=== PATIENT | female | born 1970 | race American Indian/Alaskan Native ===

== ENCOUNTER 2021-06-28 08:20 | Emergency (ER) | payer MEDICAID, SELFPAY ==
[2021-06-28] VITALS (10 sets, daily range): BP systolic 90–99; BP diastolic 53–68; PULSE 82–96; RESP 21–29; TEMP 36.8; O2SAT 92–95; BMI 25.0
--- NOTE | 2021-06-28 08:24 | ED_ITS ---
HPI - Asthma General Chief Complaint: Asthma Stated Complaint: SOB & chest pain Time Seen by Provider: 06/28/21 08:20 History of Present Illness HPI Narrative: 50-year-old woman with a history of COPD/asthma, opiate use disorder on 160 mg of methadone and followed at the [facility]. History of 2 pack a day smoking, bipolar disorder, as well as recurrent insomnia presented to the clinic today for her daily methadone dose and was noted to be tachypneic, tachycardic and dyspneic. Medics were called for further evaluation and transport to the emergency department. She was given a albuterol nebulizer EN route and appears much better on arrival in the emergency department reviewed she is able to speak in full sentences although she has a hoarse voice(she states that her voice is always like this and this is not a change) with oxygen levels at 93%. She states that she had a productive cough for the last 3 days. Increased difficulty sleeping severe right upper chest pain that is in the anterior axillary line just above her breast almost into the complete axilla. There is no obvious skin abnormalities masses or erythema at that site. She describes no nausea vomiting or diarrhea. She does have a low-grade headache. She does not describe palpitations or lower extremity edema. Related Data Previous Rx's Medication Instructions Recorded albuterol sulfate 90 mcg/actuation 2 puff INHALATION Q6H PRN #8.5 g 06/28/21 aerosol inhaler methylprednisolone 4 mg tablets in See Rx Instructions .ROUTE 06/28/21 a dose pack (Medrol (Jacques)) .COMPLEX #21 ea Allergies Allergy/AdvReac Type Severity Reaction Status Date / Time No Known Drug Allergies Allergy Verified 06/28/21 09:14 Review of Systems Review of Systems Narrative: Remainder of complete review of systems is otherwise unremarkable except for that included in the HPI. Patient History Medical History (Updated 06/28/21 @ 10:59 by Jacqui Traore MD) Bipolar disorder Chronic insomnia COPD (chronic obstructive pulmonary disease) Opioid use disorder Tobacco abuse disorder Social History Smoking Status: Current every day smoker Exam Initial Vital Signs Initial Vital Signs: Vital Signs Temperature 98.2 F 06/28/21 08:21 Pulse Rate 94 H 06/28/21 08:21 Respiratory Rate 24 06/28/21 08:21 Blood Pressure 93/55 L 06/28/21 08:21 Pulse Oximetry 95 06/28/21 08:21 General: Chronically ill-appearing 50-year-old woman who appears sick but is Able to give a complete and coherent history. Neck: No JVD, supple Respiratory: Lungs with minor scattered wheezes, no significant rhonchi, Full and symmetrical air movement. She is able to speak in full sentences and is not using accessory muscles at this point Cardiac: Regular rate and rhythm. no murmurs with careful auscultation. No bruits Abdomen: Soft, nontender, good bowel tones, no flank pain Skin: Pale. Eczema with multiple dry patches and significant excoriation from scratching. There is a patch over her right shoulder close to the area of pain. This does appear to be eczema rather than zoster Neurologic: Globally weak what Grossly neurologically intact with no obvious asymmetries or abnormalities Extremities: No trauma, well perfused Psych: Cooperative, appropriate insight and affect Course Orders Ordered: ED Orders 06/28/21 08:40 XR chest 1V Stat Complete Blood Count AUTO DIFF Stat Comprehensive Metabolic Panel Stat Lactate (Lactic Acid) Stat Lipase Stat Magnesium Stat Respiratory Panel (Film Array) Stat Troponin I Stat 06/28/21 09:05 Blood Culture Stat Discontinued Medications Sodium Chloride (Normal Saline 0.9%) 1,000 mls @ 1,000 mls/hr IV BOLUS ONE Stop: 06/28/21 09:37 Last Infusion: 06/28/21 10:35 Dose: 0 mls/hr Documented by: Admin: 06/28/21 09:15 Dose: 1,000 mls/hr Documented by: CATHERINE Ketorolac Tromethamine (Ketorolac 30 Mg/Ml Vial) 15 mg IV NOW ONE Stop: 06/28/21 08:39 Last Admin: 06/28/21 09:15 Dose: 15 mg Documented by: CATHERINE Magnesium Citrate (Magnesium Citrate 300 Ml Solution) 300 ml PO NOW ONE Stop: 06/28/21 08:39 Last Admin: 06/28/21 09:14 Dose: 300 ml Documented by: CATHERINE Methadone HCl (Methadone 10 Mg Tablet) 160 mg PO NOW ONE Stop: 06/28/21 10:31 Last Admin: 06/28/21 10:34 Dose: 160 mg Documented by: AUPDIKE Methylprednisolone (Methylprednisolone 125 Mg/2 Ml Vial) 125 mg IV NOW ONE Stop: 06/28/21 08:39 Last Admin: 06/28/21 09:15 Dose: 125 mg Documented by: CATHERINE Ondansetron HCl (Ondansetron 4 Mg/2 Ml Inj) 4 mg IV NOW ONE Stop: 06/28/21 08:39 Last Admin: 06/28/21 09:14 Dose: 4 mg Documented by: CATHERINE Vital Signs Vital signs: Vital Signs - 8 hr 06/28/21 08:21 Temperature 98.2 F Pulse Rate 94 H Respiratory Rate 24 Blood Pressure 93/55 L Pulse Oximetry 95 MDM - Asthma Lab Data Lab results narrative: Significant microcytic anemia, no prior blood work for comparison Result diagrams: 06/28/21 08:40 06/28/21 08:40 Labs: Lab Results 06/28/21 06/28/21 06/28/21 Range/Units 08:40 08:40 08:40 WBC 9.1 (4.5-11.0) X10^3/uL RBC 3.71 L (4.0-5.2) X10^6/uL Hgb 7.5 L (12.0-16.0) g/dL Hct 23.7 L (36-46) % MCV 64.1 L (80-100) fL MCH 20.3 L (26-34) PG MCHC 31.6 (30-36) % RDW 22.3 H (11.6-14.8) % Plt Count 410 H (150-400) X10^3/uL Neut % (Auto) 85.9 H (50-75) % Lymph % (Auto) 7.0 L (25-40) % [place] % (Auto) 4.6 (3-14) % Eos % (Auto) 2.3 (2-4) % Baso % (Auto) 0.2 (0-2) % Neut # (Auto) 7800 H (0270-6724) /uL Lymph # (Auto) 600 L (1950-8457) /uL [place] # (Auto) 400 (0-900) /uL Eos # (Auto) 200 (0-450) /uL Baso # (Auto) 0 (0-100) /uL RBC Morphology Not Reportable Hypochromasia 2+ H Poikilocytosis 1+ H Microcytosis 3+ H Sodium 137 (137-145) mmol/L Potassium 3.8 (3.4-5.1) mmol/L Chloride 103 (98-107) mmol/L Carbon Dioxide 28 (22-32) mmol/L BUN 9 (7-17) mg/dL Creatinine 0.63 (0.52-1.04) mg/dL Estimated GFR > 60 (>60) mL/min BUN/Creatinine Ratio 14.3 (6-22) Glucose 106 H (70-100) mg/dL Lactate 0.8 (0.7-2.1) mmol/L Calcium 7.8 L (8.4-10.2) mg/dL Magnesium 2.0 (1.6-2.3) mg/dL Total Bilirubin 0.1 L (0.2-1.3) mg/dL AST 37 H (14-36) IU/L ALT 14 (<35) IU/L Alkaline Phosphatase 107 (38-126) U/L Troponin I < 0.012 (0.01-0.034) ng/mL Total Protein 7.1 (6.3-8.2) g/dL Albumin 3.2 L (3.5-5.0) g/dL Globulin 3.9 (1.7-4.1) g/dL Albumin/Globulin Ratio 0.8 L (1.0-2.8) Lipase 55 (23-300) U/L Chlamy pneumoniae PCR (Not Detect) Adenovirus (PCR) (Not Detect) B. pertussis DNA (PCR) (Not Detecte) B.parapertussis DNA PCR (Not Detecte) Coronavirus OC43 (PCR) (Not Detect) Coronavirus HKU1 (PCR) (Not Detect) Coronavirus 229E (PCR) (Not Detect) SARS-CoV-2 (PCR) (Not Detecte) Coronavirus NL63 (PCR) (Not Detect) Human Metapneumovir PCR (Not Detect) Influenza Type A (PCR) (Not Detect) Influenza Type B (PCR) (Not Detect) M. pneumoniae (PCR) (Not Detect) Parainfluenza 1 (PCR) (Not Detect) Parainfluenza 2 (PCR) (Not Detect) Parainfluenza 3 (PCR) (Not Detect) Parainfluenza 4 (PCR) (Not Detect) RSV (PCR) (Not Detect) Entero/Rhino (PCR) (Not Detect) 06/28/21 Range/Units 08:40 WBC (4.5-11.0) X10^3/uL RBC (4.0-5.2) X10^6/uL Hgb (12.0-16.0) g/dL Hct (36-46) % MCV (80-100) fL MCH (26-34) PG MCHC (30-36) % RDW (11.6-14.8) % Plt Count (150-400) X10^3/uL Neut % (Auto) (50-75) % Lymph % (Auto) (25-40) % [place] % (Auto) (3-14) % Eos % (Auto) (2-4) % Baso % (Auto) (0-2) % Neut # (Auto) (9164-7174) /uL Lymph # (Auto) (1741-3519) /uL [place] # (Auto) (0-900) /uL Eos # (Auto) (0-450) /uL Baso # (Auto) (0-100) /uL RBC Morphology Hypochromasia Poikilocytosis Microcytosis Sodium (137-145) mmol/L Potassium (3.4-5.1) mmol/L Chloride (98-107) mmol/L Carbon Dioxide (22-32) mmol/L BUN (7-17) mg/dL Creatinine (0.52-1.04) mg/dL Estimated GFR (>60) mL/min BUN/Creatinine Ratio (6-22) Glucose (70-100) mg/dL Lactate (0.7-2.1) mmol/L Calcium (8.4-10.2) mg/dL Magnesium (1.6-2.3) mg/dL Total Bilirubin (0.2-1.3) mg/dL AST (14-36) IU/L ALT (<35) IU/L Alkaline Phosphatase (38-126) U/L Troponin I (0.01-0.034) ng/mL Total Protein (6.3-8.2) g/dL Albumin (3.5-5.0) g/dL Globulin (1.7-4.1) g/dL Albumin/Globulin Ratio (1.0-2.8) Lipase (23-300) U/L Chlamy pneumoniae PCR Not detected (Not Detect) Adenovirus (PCR) Not detected (Not Detect) B. pertussis DNA (PCR) Not detected (Not Detecte) B.parapertussis DNA PCR Not detected (Not Detecte) Coronavirus OC43 (PCR) Not detected (Not Detect) Coronavirus HKU1 (PCR) Not detected (Not Detect) Coronavirus 229E (PCR) Not detected (Not Detect) SARS-CoV-2 (PCR) Not detected (Not Detecte) Coronavirus NL63 (PCR) Not detected (Not Detect) Human Metapneumovir PCR Not detected (Not Detect) Influenza Type A (PCR) Detected H (Not Detect) Influenza Type B (PCR) Not detected (Not Detect) M. pneumoniae (PCR) Not detected (Not Detect) Parainfluenza 1 (PCR) Not detected (Not Detect) Parainfluenza 2 (PCR) Not detected (Not Detect) Parainfluenza 3 (PCR) Not detected (Not Detect) Parainfluenza 4 (PCR) Not detected (Not Detect) RSV (PCR) Not detected (Not Detect) Entero/Rhino (PCR) Not detected (Not Detect) Imaging Data Chest x-ray: Radiologist's Impression: FINDINGS:? ? Surgical changes and devices:? None.? ? Lungs and pleura:? Improvement in left basilar atelectasis and infiltrate.? Development of patchy right basilar pneumonia.? No pleural effusions or pneumothorax.? ? Mediastinum:? Mediastinal contours appear normal.? Heart size is normal.? ? Bones and chest wall:? No suspicious bony lesions.? Overlying soft tissues appear unremarkable.? ? IMPRESSION:? ? 1. Improvement in left basilar atelectasis plus infiltrate. ? 2. Development of patchy right basilar pneumonia. ? ? Dictated by: Shubham Perry M.D. on 06/28/2021 at 9:04? ?? [facility] Narrative Medical decision making narrative: 50-year-old woman with cough, severe pain in the right anterior axillary area and history of COPD. She is relatively hypotensive and exquisitely tender to the point that even looking at the area of pain causes her to shot I away. Th ere are no skin changes at all no trauma no abnormalities on chest x-ray in that specific area. Blood work suggests poor overall nutrition and chronic anemia. She states that she has not been vomiting she has not had any black stools and she has had a history of anemia ever since she was a child. She states that she has not had further workup for this. After discussion with her clinic, she is given her daily 160 mg oral methadone. Given the fact that she appears to be in acute withdrawal I suspect she is using additional narcotics beyond the methadone as her last methadone dose was 24 jerica rs ago and 1 would not expect such severe withdrawal symptoms. No evidence of pneumonia. Chest wall pain of uncertain etiology. She did not respond to Toradol with the chest wall pain. On re-evaluation after methadone she is significantly improved. No acute distress, no respiratory distress and reports that pain is improved. No evidence of bony injury or pneumothorax. She held mild wheezing with her cough will go ahead and treat her for a mild COPD exacerbation with a Medrol Dosepak and have her continue with her albuterol MDI. At this time there is no evidence of sepsis, acute coronary syndrome, pneumonia or alternate explanation for her pain require further workup for hospitalizati on. Discharge Plan Departure Patient Disposition: Home Clinical Impression: Chronic obstructive asthma with exacerbation, Opioid use disorder Instructions: DI for Chronic Obstructive Pulmonary Disease Activity Restrictions/Additional Instructions: Thank you for coming in today Your evaluation was actually very reassuring. I suspect that your having a mild exacerbation of your COPD. I have given you a prescription for a Medrol Dosepak. You can start this tomorrow as you are given a dose of Solu-Medrol, a steroid, in the emergency room today. There is no evidence of collapsed lung, infection, shingles, heart attack or other life-threatening explanation for your chest pain. You were given 160 mg of methadone in the emergency room today as your usual methadone dose. This has been discussed with staff at the [facility]. I wish you luck in your getting your opioid use disorder under control and also in continuing with your attempts to stop smoking If you find that you are getting worse or develop any new symptoms, please feel free to return to the emergency department for further evaluation. Prescriptions: New methylprednisolone [Medrol (Jacques)] 4 mg tablets,dose pack See Rx Instructions .ROUTE .COMPLEX Qty: 21 0RF Rx Instructions: orally per package directions albuterol sulfate 90 mcg/actuation HFA aerosol inhaler 2 puff inhalation Q6H PRN (Reason: shortness of breath or wheezing) Qty: 8.5 0RF
--- NOTE | 2021-06-28 08:40 | DI.RAD.S_ITS ---
PROCEDURE: XR CHEST 1V INDICATIONS: cough for a couple days TECHNIQUE: One view of the chest was acquired. COMPARISON: [facility], CT, CT CHEST WITHOUT CONTRAST, 05/13/2020, 12:24. FINDINGS: Surgical changes and devices: None. Lungs and pleura: Improvement in left basilar atelectasis and infiltrate. Development of patchy right basilar pneumonia. No pleural effusions or pneumothorax. Mediastinum: Mediastinal contours appear normal. Heart size is normal. Bones and chest wall: No suspicious bony lesions. Overlying soft tissues appear unremarkable. IMPRESSION: 1. Improvement in left basilar atelectasis plus infiltrate. 2. Development of patchy right basilar pneumonia. Dictated by: Shubham Perry M.D. on 06/28/2021 at 9:04 Approved by: Shubham Perry M.D. on 06/28/2021 at 9:07
[2021-06-28 09:01] LABS: Add Manual Diff / Slide Review NO; Basophils Absolute Auto 0 /uL (0-100); Basophils Percent Auto 0.2 % (0-2); Eosinophils Absolute Auto 200 /uL (0-450); Eosinophils Percent Auto 2.3 % (2-4); Hematocrit 23.7 % (36-46); Hemoglobin 7.5 g/dL (12.0-16.0); Lymphocytes Absolute Auto 600 /uL (1100-4500); Mean Corpuscular HGB Conc 31.6 % (30-36); Mean Corpuscular Hemoglobin 20.3 PG (26-34); Mean Corpuscular Volume 64.1 fL (80-100); Monocytes Absolute Auto 400 /uL (0-900); Monocytes Percent Auto 4.6 % (3-14); Neutrophils Absolute Auto 7800 /uL (1500-7000); Neutrophils Percent Auto 85.9 % (50-75); Platelet Count 410 X10^3/uL (150-400); Red Blood Cell Count 3.71 X10^6/uL (4.0-5.2); Red Cell Distribution Width 22.3 % (11.6-14.8); White Blood Cell Count 9.1 X10^3/uL (4.5-11.0)
[2021-06-28 09:02] LABS: Alanine Aminotransferase 14 IU/L (<35); Albumin 3.2 g/dL (3.5-5.0); Albumin Globulin Ratio 0.8 (1.0-2.8); Alkaline Phosphatase 107 U/L (38-126); Aspartate Aminotransferase 37 IU/L (14-36); BUN Creatinine Ratio 14.3 (6-22); Bilirubin Total 0.1 mg/dL (0.2-1.3); Blood Urea Nitrogen 9 mg/dL (7-17); Calcium 7.8 mg/dL (8.4-10.2); Carbon Dioxide 28 mmol/L (22-32); Chloride 103 mmol/L (98-107); Estimated Glomerular Filt Rate > 60 mL/min (>60); Globulin 3.9 g/dL (1.7-4.1); Glucose 106 mg/dL (70-100); HEMOLYSIS < 15 (0-50); Lipase 55 U/L (23-300); Potassium 3.8 mmol/L (3.4-5.1); Sodium 137 mmol/L (137-145); Total Protein 7.1 g/dL (6.3-8.2)
[2021-06-28 09:11] LABS: Troponin I < 0.012 ng/mL (0.01-0.034)
[2021-06-28 09:13] LABS: Lactate (Lactic Acid) 0.8 mmol/L (0.7-2.1)
[2021-06-28] MEDS: MAGNESIUM CITRATE 300 ML SOLUTION PO (09:14)
[2021-06-28] MEDS: ONDANSETRON 4 MG/2 ML INJ IV (09:14)
[2021-06-28] MEDS: KETOROLAC 30 MG/ML VIAL 15 MG IV (09:15)
[2021-06-28] MEDS: methylPREDNISolone 125 MG/2 ML VIAL IV (09:15)
[2021-06-28] MEDS: SODIUM CHLORIDE 0.9% 1,000 ML 1000 ML IV (09:15)
[2021-06-28 09:35] LABS: Hypochromasia 2+; Microcytosis 3+; Poikilocytosis 1+
[2021-06-28 09:45] LABS: Adenovirus Not Detected (Not Detect); B. parapertussis Not Detected (Not Detecte); Bordetella pertussis Not Detected (Not Detecte); Chlamydophila pneumoniae Not Detected (Not Detect); Coronavirus 229E Not Detected (Not Detect); Coronavirus HKU1 Not Detected (Not Detect); Coronavirus NL 63 Not Detected (Not Detect); Coronavirus OC43 Not Detected (Not Detect); Human Metapneumovirus Not Detected (Not Detect); Human Rhinovirus/Enterovirus Not Detected (Not Detect); Influenza A Detected (Not Detect); Influenza B Not Detected (Not Detect); Mycoplasma pneumoniae Not Detected (Not Detect); Parainfluenza Virus 1 Not Detected (Not Detect); Parainfluenza Virus 2 Not Detected (Not Detect); Parainfluenza Virus 3 Not Detected (Not Detect); Parainfluenza Virus 4 Not Detected (Not Detect); Respiratory Syncytial Virus Not Detected (Not Detect); SARS- CoV-2 Not Detected (Not Detecte)
[2021-06-28] MEDS: METHADONE 10 MG TABLET 160 MG PO (10:34)
== END 2021-06-28 11:18 | disposition home or self-care (01) ==
PROVIDERS: Emergency Provider Emergency Medicine
DX: J44.1 Chronic obstructive pulmonary disease with (acute) exacerbation (principal); F11.90 Opioid use, unspecified, uncomplicated; R00.0 Tachycardia, unspecified; R06.02 Shortness of breath; Z20.822 Contact with and (suspected) exposure to COVID-19; I95.9 Hypotension, unspecified
CPT/HCPCS: 36415; 71045; 80053; 83605; 83690; 83735; 84484; 85025; 87040; 87633; 93005; 96374; 96375; 99284; J1885; J2405; J2930

== ENCOUNTER 2021-11-09 08:44 | Emergency (ER) | payer MEDICAID, SELFPAY ==
[2021-11-09 09:05] VITALS: BP 107/59; PULSE 70; RESP 14; TEMP 36.8; O2SAT 97; BMI 25.0
--- NOTE | 2021-11-09 09:31 | ED.RECABL ---
HPI - Recheck/Abnormal Lab/Rx General Chief Complaint: Recheck/Abnormal Lab/Rx Stated Complaint: Abnormal labs ref from [facility] Time Seen by Provider: 11/09/21 09:13 Source: patient Mode of arrival: Ambulatory History of Present Illness HPI narrative: The patient is here due to abnormal labs. She has a new physician. She has COPD. From prior evaluation here, she has anemia. Lab work revealed H/H of 6.7/25.5. Platelets 442. Her TIBC, and iron levels are notably low. She has no chest pain. She is coughing, she denies dyspnea. She has no dizziness. She has mild abdominal pain. She has no history of ulcers or GI bleeding. She denies melena or hematochezia. She was evaluated at this ER 06/28/2021 for COPD. Her H/H at that time was 7.5/23.7. Related Data Previous Rx's Medication Instructions Recorded albuterol sulfate 90 mcg/actuation 2 puff inhalation Q6H PRN 06/28/21 aerosol inhaler shortness of breath or wheezing #8.5 grams methylprednisolone 4 mg tablets in See Rx Instructions PO .COMPLEX 06/28/21 a dose pack (Medrol (Jacques)) #21 ea Allergies Allergy/AdvReac Type Severity Reaction Status Date / Time No Known Drug Allergies Allergy Verified 11/09/21 09:10 Review of Systems Review of Systems ROS Unobtainable: All systems reviewed & are unremarkable except as noted in HPI and below Constitutional Constitutional: Denies anorexia, Denies body ache(s), Denies chills, Denies fatigue, Denies fever(s) and Denies malaise ENT Ears, Nose, Mouth, and Throat: Denies vertigo, Denies dizziness and Denies sore throat Cardiovascular Cardiovascular: Denies chest pain and Denies irregular heart rhythm Respiratory Respiratory: Denies chest congestion and Denies cough Gastrointestinal Gastrointestinal: Denies abdominal pain, Denies melena and Denies hematochezia Genitourinary Genitourinary: Denies dysuria Musculoskeletal Musculoskeletal: Denies arthralgias, Denies back pain and Denies myalgias Integumentary/Breasts Skin/Breast: Denies lesions and Denies rash Neurologic Neurologic: Denies vertigo and Denies dizziness Endocrine Endocrine: Denies fatigue Hematologic/Lymphatic On Anticoagulants: No Patient History Medical History Bipolar disorder Chronic insomnia COPD (chronic obstructive pulmonary disease) Opioid use disorder Tobacco abuse disorder Social History Smoking Status: Current every day smoker Smoking Status: Current every day smoker alcohol intake frequency: holidays/special occasions only Substance Use Type: opiates and painkillers Exam Initial Vital Signs Initial Vital Signs: Vital Signs Temperature 98.2 F 11/09/21 09:05 Pulse Rate 70 11/09/21 09:05 Respiratory Rate 14 11/09/21 09:05 Blood Pressure 107/59 L 11/09/21 09:05 Pulse Oximetry 97 11/09/21 09:05 Oxygen Delivery Method 11/09/21 09:05 Const General: cooperative, healthy appearing and comfortable HENMT Head: normal to inspection, normocephalic and atraumatic Mouth: oral mucosae normal Throat: posterior oropharynx normal Eyes General: Yes appearance normal, both eyes and all related structures Neck Neck: No lymphadenopathy and No JVD Resp Auscultation: clear to auscultation bilaterally Cardio Rate: regular rate Rhythm: regular rhythm Heart Sounds: S1 normal, S2 normal and no murmurs GI Inspection: normal to inspection Palpation: soft, No guarding and No tender Auscultation: normal bowel sounds Rectal Exam: visual inspection normal, normal sphincter tone, heme negative stool and No mass Back/Spine/Pelvis Back: normal to inspection and No back tenderness Skin General: no rashes or lesions noted Neuro General: patient alert, patient awake, patient oriented x3 and no focal motor deficits Extrem General: normal to inspection, no pedal edema and no calf tenderness Psych Appearance: grossly normal Course Course Course Narrative: Her anemia is chronic. Despite the low H/H, her heart rate and blood pressure have adapted. She is normotensive, she has no dizziness when up and about. Labs from her provider's office indicate a significant low iron level. She is referred back to her PCM for management of chronic anemia. Transfusion is not indicated. Orders Ordered: ED Orders 11/09/21 09:43 CBC with manual diff [Complete Blood Count MAN DIFF] Stat CMP [Comprehensive Metabolic Panel] Stat Prothrombin Time INR Stat Vital Signs Vital signs: Vital Signs - 8 hr 11/09/21 09:05 11/09/21 10:16 11/09/21 10:19 Temperature 98.2 F Pulse Rate 70 68 Respiratory Rate 14 Blood Pressure 107/59 L 106/56 L Pulse Oximetry 97 96 Oxygen Delivery Method Room Air 11/09/21 10:19 11/09/21 10:30 11/09/21 10:30 Temperature Pulse Rate 67 69 Respiratory Rate 17 20 Blood Pressure 104/57 L Pulse Oximetry 96 97 Oxygen Delivery Method 11/09/21 11:00 11/09/21 11:00 Temperature Pulse Rate 69 Respiratory Rate 21 Blood Pressure 105/59 L Pulse Oximetry Oxygen Delivery Method MDM - Recheck/Abnormal Lab/Rx Lab Data Result diagrams: 11/09/21 09:43 11/09/21 09:43 Labs: Lab Results 11/09/21 11/09/21 11/09/21 Range/Units 09:43 09:43 09:43 WBC 4.8 (4.5-11.0) X10^3/uL RBC 3.62 L (4.0-5.2) X10^6/uL Hgb 6.8 L* (12.0-16.0) g/dL Hct 22.5 L (36-46) % MCV 62.2 L (80-100) fL MCH 18.7 L (26-34) PG MCHC 30.1 (30-36) % RDW 19.8 H (11.6-14.8) % Plt Count 353 (150-400) X10^3/uL Total Counted 100 Seg Neutrophils % 64.0 (38-70) % Lymphocytes % (Manual) 23.0 L (25-45) % Monocytes % (Manual) 1.0 L (2-11) % Eosinophils % (Manual) 12.0 H (2-4) % Neutrophils # (Manual) 3072 (6042-7949) /uL RBC Morphology Not Reportable Hypochromasia 1+ H Microcytosis 3+ H PT 12.1 (10.1-12.7) SECONDS INR 1.1 (0.9-1.3) Sodium 142 (137-145) mmol/L Potassium 4.1 (3.4-5.1) mmol/L Chloride 107 (98-107) mmol/L Carbon Dioxide 27 (22-32) mmol/L BUN 8 (7-17) mg/dL Creatinine 0.64 (0.52-1.04) mg/dL Estimated GFR > 60 (>60) mL/min BUN/Creatinine Ratio 12.5 (6-22) Glucose 78 (70-100) mg/dL Calcium 8.2 L (8.4-10.2) mg/dL Total Bilirubin 0.1 L (0.2-1.3) mg/dL AST 29 (14-36) IU/L ALT 11 (<35) IU/L Alkaline Phosphatase 97 (38-126) U/L Total Protein 7.4 (6.3-8.2) g/dL Albumin 3.6 (3.5-5.0) g/dL Globulin 3.8 (1.7-4.1) g/dL Albumin/Globulin Ratio 0.9 L (1.0-2.8) Point of Care Testing Stool Occult Blood Negative Discharge Plan Departure Patient Disposition: Home Clinical Impression: Chronic anemia Instructions: Anemia Activity Restrictions/Additional Instructions: You have significant anemia, but your numbers have changed little in the past several months. You do not need a transfusion at this moment. You have no evidence and internal bleeding, acute bleeding. You need to follow-up with your primary care doctor for evaluation and management of chronic anemia. You would likely benefit from iron infusions. Return here as needed. Prescriptions: No Action methylprednisolone [Medrol (Jacques)] 4 mg tablets,dose pack See Rx Instructions .ROUTE .COMPLEX Qty: 21 0RF Rx Instructions: orally per package directions albuterol sulfate 90 mcg/actuation HFA aerosol inhaler 2 puff inhalation Q6H PRN (Reason: shortness of breath or wheezing) Qty: 8.5 0RF Visit Report Forms: Patient Portal/API
[2021-11-09 09:56] LABS: Hematocrit 22.5 % (36-46); Mean Corpuscular HGB Conc 30.1 % (30-36); Mean Corpuscular Hemoglobin 18.7 PG (26-34); Mean Corpuscular Volume 62.2 fL (80-100); Platelet Count 353 X10^3/uL (150-400); Red Blood Cell Count 3.62 X10^6/uL (4.0-5.2); Red Cell Distribution Width 19.8 % (11.6-14.8); White Blood Cell Count 4.8 X10^3/uL (4.5-11.0)
[2021-11-09 09:57] LABS: Hemoglobin 6.8 g/dL (12.0-16.0)
[2021-11-09 09:58] LABS: INR 1.1 (0.9-1.3); Prothrombin Time 12.1 SECONDS (10.1-12.7)
[2021-11-09 10:02] LABS: Alanine Aminotransferase 11 IU/L (<35); Albumin 3.6 g/dL (3.5-5.0); Albumin Globulin Ratio 0.9 (1.0-2.8); Alkaline Phosphatase 97 U/L (38-126); Aspartate Aminotransferase 29 IU/L (14-36); BUN Creatinine Ratio 12.5 (6-22); Bilirubin Total 0.1 mg/dL (0.2-1.3); Blood Urea Nitrogen 8 mg/dL (7-17); Calcium 8.2 mg/dL (8.4-10.2); Carbon Dioxide 27 mmol/L (22-32); Chloride 107 mmol/L (98-107); Estimated Glomerular Filt Rate > 60 mL/min (>60); Globulin 3.8 g/dL (1.7-4.1); Glucose 78 mg/dL (70-100); HEMOLYSIS < 15 (0-50); Hypochromasia 1+; Microcytosis 3+; Neutrophils Absolute Manual 3072 /uL (3000-5900); Potassium 4.1 mmol/L (3.4-5.1); Sodium 142 mmol/L (137-145); Total Cells Counted 100; Total Protein 7.4 g/dL (6.3-8.2)
[2021-11-09 10:16] VITALS: PULSE 68; O2SAT 96
[2021-11-09 10:19] VITALS: BP 106/56; PULSE 67; RESP 17; O2SAT 96
[2021-11-09 10:30] VITALS: BP 104/57; PULSE 69; RESP 20; O2SAT 97
[2021-11-09 11:00] VITALS: BP 105/59; PULSE 69; RESP 21
[2021-11-09 11:30] VITALS: BP 110/66; PULSE 75; RESP 18; O2SAT 97
== END 2021-11-09 11:35 | disposition home or self-care (01) ==
PROVIDERS: Emergency Provider Emergency Medicine
DX: D64.9 Anemia, unspecified (principal); R05.9 Cough, unspecified; R10.9 Unspecified abdominal pain
CPT/HCPCS: 36415; 80053; 82272; 85025; 85610; 99282; 99283

== ENCOUNTER → 2024-03-31 09:00 | Oncology outpatient (ONC) | payer MEDICAID, SELFPAY ==
[2024-03-25 09:17] VITALS: BP 130/85; PULSE 91; RESP 16; TEMP 36.8; O2SAT 91
[2024-03-25] MEDS: IRON SUCROSE 300 MG in SODIUM CHLORIDE 0.9% 250 ML 176.667 MG IV (09:58)
[2024-03-25 12:05] VITALS: BP 105/67; PULSE 84; RESP 18; TEMP 36.4; O2SAT 97
[2024-03-31 09:00] VITALS: BP 113/68; PULSE 91; RESP 18; TEMP 37.1; O2SAT 98
[2024-03-31] MEDS: IRON SUCROSE 300 MG in SODIUM CHLORIDE 0.9% 250 ML 176.667 MG IV (09:38)
[2024-03-31 11:42] VITALS: BP 114/66; PULSE 72; RESP 18; TEMP 36.8; O2SAT 97
== END ==
PROVIDERS: PCP Family Medicine; Referring Provider Family Medicine; Visit Provider Family Medicine
DX: D50.9 Iron deficiency anemia, unspecified (principal)
CPT/HCPCS: 96365; 96366; 96367; J1756

== ENCOUNTER 2024-04-02 08:53 | Inpatient (IN) | payer MEDICAID, SELFPAY ==
[2024-04-02] VITALS (15 sets, daily range): BP systolic 92–105; BP diastolic 56–63; PULSE 83–102; RESP 16–22; TEMP 36.8–38.3; O2SAT 85–99; BMI 16.9
--- NOTE | 2024-04-02 09:04 | DI.RAD.S_ITS ---
PROCEDURE: XR CHEST 1V INDICATIONS: short of breath TECHNIQUE: One view of the chest was acquired. COMPARISON: [facility], CR, XR CHEST 1V, 06/28/2021, 8:39. [facility], CT, CT CHEST ABDOMEN PELVIS WITH CONTRAST, 05/08/2023, 11:02. [facility], CT, CT CHEST WITHOUT CONTRAST, 07/17/2023, 8:03. [facility], CR, XR CHEST 2 VIEWS, 05/07/2023, 10:01. FINDINGS: Surgical changes and devices: None. Lungs and pleura: Patient has had multiple imaging studies that have demonstrated masslike densities present in the apical portion of the right upper lobe. Current study demonstrates persistence of masslike densities with additional increased masslike density present in the right mid lung field. There is patchy right basilar atelectasis. Mediastinum: Mediastinal contours appear normal. Heart size is normal. Hiatal hernia. Bones and chest wall: No suspicious bony lesions. Overlying soft tissues appear unremarkable. IMPRESSION: Progressive process in the right lung. Additional masslike density seen in right mid lung field, of uncertain etiology. Hiatal hernia. Dictated by: Shubham Perry M.D. on 04/02/2024 at 9:30 Approved by: Shubham Perry M.D. on 04/02/2024 at 9:31
[2024-04-02 09:29] LABS: Add Manual Diff / Slide Review NO; Basophils Absolute Auto 100 /uL (0-100); Basophils Percent Auto 0.3 % (0-2); Eosinophils Absolute Auto 400 /uL (0-450); Eosinophils Percent Auto 1.9 % (2-4); Hematocrit 28.3 % (36-46); Hemoglobin 8.5 g/dL (12.0-16.0); Lymphocytes Absolute Auto 800 /uL (1100-4500); Lymphocytes Percent Auto 3.4 % (25-40); Mean Corpuscular Hemoglobin 21.3 PG (26-34); Monocytes Absolute Auto 800 /uL (0-900); Monocytes Percent Auto 3.7 % (3-14); Neutrophils Absolute Auto 20900 /uL (1500-7000); Neutrophils Percent Auto 90.7 % (50-75); Platelet Count 530 X10^3/uL (150-400); Red Blood Cell Count 3.98 X10^6/uL (4.0-5.2); Red Cell Distribution Width 21.8 % (11.6-14.8)
--- NOTE | 2024-04-02 09:33 | EKG_ITS ---
[address] [address] Test Date: 2024-04-02 Pat Name: Mickie Menendez Department: [facility] Room: Gender: Female [employer] Equipment [employer]: EMI : 1970 Requested By: Order Number: [id number] Reading MD: Abhilash Santos Measurements Intervals [place] Rate: 95 P: 203 [place]: QRS: 33 QRSD: 82 T: 25 QT: 324 QTc: 407 Interpretive Statements NSR Nonspecific T wave abnormality Electronically Signed On 04-02-2024 15:10:03 PST by Abhilash Santos
[2024-04-02 09:37] LABS: Prothrombin Time 11.6 SECONDS (9.4-12.5)
[2024-04-02 09:39] LABS: Anisocytosis 2+; Poikilocytosis 1+
[2024-04-02 09:40] LABS: PTT Partial Thromboplastin Tim 31 SECONDS (25.1-36.5)
[2024-04-02 09:42] LABS: Alanine Aminotransferase 17 IU/L (<35); Albumin 3.5 g/dL (3.5-5.0); Albumin Globulin Ratio 0.9 (1.0-2.8); Alkaline Phosphatase 75 U/L (38-126); Aspartate Aminotransferase 42 IU/L (14-36); BUN Creatinine Ratio 13.3 (6-22); Bilirubin Total 0.3 mg/dL (0.2-1.3); Blood Urea Nitrogen 10 mg/dL (7-17); Calcium 8.5 mg/dL (8.4-10.2); Carbon Dioxide 29 mmol/L (22-32); Chloride 104 mmol/L (98-107); Creatine Kinase 60 U/L (30-135); Estimated Glomerular Filt Rate > 60 mL/min (>60); Globulin 3.8 g/dL (1.7-4.1); Glucose 75 mg/dL (70-100); HEMOLYSIS 18 (0-50); Lipase 32 U/L (23-300); Potassium 4.2 mmol/L (3.4-5.1); Sodium 139 mmol/L (137-145); Total Protein 7.3 g/dL (6.3-8.2)
[2024-04-02 09:44] LABS: Lactate (Lactic Acid) 1.1 mmol/L (0.7-2.1)
--- NOTE | 2024-04-02 09:47 | ED_ITS ---
HPI - SOB/Dyspnea General Chief Complaint: Shortness of Breath/Dyspnea Stated Complaint: SOB Time Seen by Provider: 04/02/24 09:02 Source: patient and EMS Mode of arrival: EMS History of Present Illness HPI Narrative: Patient is a 53-year-old female history of COPD/asthma opiate use disorder on methadone daily history of anemia bipolar disorder presenting today with altered mental status. She was getting her methadone when they noticed she had a pretty significant coughing attack. She is found to be febrile here at 100.9, tachycardic mildly hypotensive meeting sepsis criteria. She initially awake and responsive however now becoming less responsive. EMS reports that she was hypoxic for them in the field in the mid to upper 80s she was put on 2 L nasal cannula now at 96%. She was not chronically on oxygen. She was given 1 mg of Narcan and actually quickly responds him and comes more awake. Reports that she has been sick a long time says that she still coughing. No other symptoms reported. Related Data Home Medications Medication Instructions Recorded Confirmed methadone 5 mg/5 mL oral syringe 197 mg PO DAILY 04/02/24 04/02/24 (FOR ORAL USE ONLY) omeprazole 20 mg capsule,delayed 20 mg PO DAILY 04/02/24 04/02/24 release Previous Rx's Medication Instructions Recorded albuterol sulfate 90 mcg/actuation 2 puff inhalation Q6H PRN 06/28/21 aerosol inhaler shortness of breath or wheezing #8.5 grams Allergies Allergy/AdvReac Type Severity Reaction Status Date / Time quetiapine [From Seroquel] Allergy Unknown Verified 03/25/24 09:10 trazodone Allergy Unknown Verified 03/25/24 09:10 Patient History Medical History COPD (chronic obstructive pulmonary disease) Chronic insomnia Tobacco abuse disorder Bipolar disorder Opioid use disorder Social History household members: spouse and family Smoking Status: Current every day smoker alcohol intake: current Smoking Status: Current every day smoker alcohol intake frequency: holidays/special occasions only Exam Initial Vital Signs Initial Vital Signs: Vital Signs Pulse Rate 101 H 04/02/24 08:57 Blood Pressure 98/56 L 04/02/24 08:57 Pulse Oximetry 94 04/02/24 08:57 GENERAL: Sleeping not arousable to voice minimally to pain HEENT: Head atraumatic,EOMI, pupils reactive, face symmetric, [moist] mucous membranes CARDIOVASCULAR: Regular rate and rhythm without murmurs, rubs or gallops. RESPIRATORY: Tachypneic slightly coarse bases ABDOMEN: Soft, nontender. Normoactive bowel sounds all 4 quadrants. No guarding or rebound. EXTREMITIES: Normal range of motion, no clubbing or edema. Neurovascularly intact NEUROLOGICAL: Alert and oriented x4.Normal gait and speech. Cranial nerves II through XII grossly intact. SKIN: Warm, dry, no laceration, no petechiae, no rashes or lesions. Course Orders Ordered: ED Orders 04/02/24 09:47 Blood Culture Stat 04/02/24 09:54 ABG [Arterial Blood Gas] STAT 04/02/24 10:13 CT angio chest PE protocol Stat Acetaminophen (Acetaminophen 325 Mg Tablet) 650 mg PO Q6H PRN PRN Reason: Fever/Mild Pain (1-3) Last Admin: 04/02/24 13:49 Dose: 650 mg Documented By: KWADWO Doxycycline Hyclate (Doxycycline Hyclate 100 Mg Tablet) 100 mg PO BID [facility] Last Admin: 04/02/24 14:16 Dose: 100 mg Documented By: KWADWO Heparin Sodium (Porcine) (Heparin 5,000 Unit/Ml Vial) 5,000 unit SUBCUT BID [facility] Last Admin: 04/02/24 13:49 Dose: 5,000 unit Documented By: KWADWO Sodium Chloride (Normal Saline 0.9%) 1,000 mls @ 100 mls/hr IV CONT [facility] Last Admin: 04/02/24 13:41 Dose: 100 mls/hr Documented By: KWADWO Ceftriaxone Sodium 1,000 mg/ (Sodium Chloride) 100 mls @ 200 mls/hr IV Q24H [facility] Last Admin: 04/02/24 14:16 Dose: 200 mls/hr Documented By: KWADWO Naloxone HCl (Naloxone 0.4 Mg/Ml Vial) 0.2 mg IV Q2MIN PRN PRN Reason: Opiate Reversal Ondansetron HCl (Ondansetron 4 Mg/2 Ml Inj) 4 mg IV Q8HR PRN PRN Reason: Nausea And Vomiting Discontinued Medications Piperacillin Sod/Tazobactam (Sod 4.5 gm/ Sodium Chloride) 100 mls @ 200 mls/hr IV NOW ONE Stop: 04/02/24 09:55 Last Infusion: 04/02/24 11:56 Dose: Infused Documented By: Admin: 04/02/24 10:13 Dose: 200 mls/hr Documented By: Naloxone HCl (Naloxone 0.4 Mg/Ml Vial) 0.2 mg IV PRN STA Stop: 04/02/24 10:07 Last Admin: 04/02/24 10:05 Dose: 0.2 mg Documented By: Vital Signs Vital signs: Vital Signs - 8 hr 04/02/24 10:30 04/02/24 11:00 04/02/24 11:19 Pulse Rate 86 84 85 Respiratory Rate 17 18 18 Blood Pressure Pulse Oximetry 98 97 96 Oxygen Delivery Method Nasal Cannula Oxygen Flow Rate 2 04/02/24 11:19 04/02/24 11:30 04/02/24 11:30 Pulse Rate 85 Respiratory Rate 17 19 Blood Pressure 101/63 101/59 L Pulse Oximetry 96 96 Oxygen Delivery Method Nasal Cannula Oxygen Flow Rate 2 04/02/24 12:00 04/02/24 12:00 Pulse Rate 84 Respiratory Rate 18 Blood Pressure 101/63 Pulse Oximetry 96 Oxygen Delivery Method Oxygen Flow Rate MDM - SOB/Dyspnea Lab Data 04/02/24 09:08 04/02/24 09:08 Labs: Lab Results 04/02/24 04/02/24 Range/Units 09:08 10:08 WBC 23.0 H (4.5-11.0) X10^3/uL RBC 3.98 L (4.0-5.2) X10^6/uL Hgb 8.5 L (12.0-16.0) g/dL Hct 28.3 L (36-46) % MCV 71.0 L (80-100) fL MCH 21.3 L (26-34) PG MCHC 30.0 (30-36) % RDW 21.8 H (11.6-14.8) % Plt Count 530 H (150-400) X10^3/uL Neut % (Auto) 90.7 H (50-75) % Lymph % (Auto) 3.4 L (25-40) % [place] % (Auto) 3.7 (3-14) % Eos % (Auto) 1.9 L (2-4) % Baso % (Auto) 0.3 (0-2) % Neut # (Auto) 63099 H (9508-7879) /uL Lymph # (Auto) 800 L (6939-7614) /uL [place] # (Auto) 800 (0-900) /uL Eos # (Auto) 400 (0-450) /uL Baso # (Auto) 100 (0-100) /uL RBC Morphology Not Reportable Poikilocytosis 1+ H Anisocytosis 2+ H PT 11.6 (9.4-12.5) SECONDS INR 1.0 (0.9-1.3) APTT 31 (25.1-36.5) SECONDS ABG Sample Site Left brachial ABG pH 7.42 (7.35-7.45) ABG pCO2 49.1 H (35-45) mmHg ABG pO2 73 L (80-100) mmHg ABG HCO3 31 H (23-27) mmol/L ABG Total CO2 31 H (23-27) mmol/L ABG O2 Saturation 94 L (95-100) % ABG Base Excess 6.0 H (-2-3) mmol/L Abhilash Test N/a O2 Delivery Device Cannula FiO2 % 24 % % Sodium 139 (137-145) mmol/L Potassium 4.2 (3.4-5.1) mmol/L Chloride 104 (98-107) mmol/L Carbon Dioxide 29 (22-32) mmol/L BUN 10 (7-17) mg/dL Creatinine 0.75 (0.52-1.04) mg/dL Estimated GFR > 60 (>60) mL/min BUN/Creatinine Ratio 13.3 (6-22) Glucose 75 (70-100) mg/dL Lactate 1.1 (0.7-2.1) mmol/L Calcium 8.5 (8.4-10.2) mg/dL Total Bilirubin 0.3 (0.2-1.3) mg/dL AST 42 H (14-36) IU/L ALT 17 (<35) IU/L Alkaline Phosphatase 75 (38-126) U/L Total Creatine Kinase 60 (30-135) U/L Troponin I < 0.012 (0.01-0.034) ng/mL NT-Pro-B Natriuret Pep 238 H (<125) pg/mL Total Protein 7.3 (6.3-8.2) g/dL Albumin 3.5 (3.5-5.0) g/dL Globulin 3.8 (1.7-4.1) g/dL Albumin/Globulin Ratio 0.9 L (1.0-2.8) Lipase 32 (23-300) U/L SARS-CoV-2 (PCR) Negative (Negative) Influenza A (RT-PCR) Flu a negative (NEGATIVE) Influenza B (RT-PCR) Flu b negative (NEGATIVE) RSV (PCR) Negative (Negative) Imaging Data Chest x-ray: Radiologist's Impression: PROCEDURE: XR CHEST 1V INDICATIONS: short of breath TECHNIQUE: One view of the chest was acquired. COMPARISON: [facility], CR, XR CHEST 1V, 06/28/2021, 8:39. [facility], CT, CT CHEST ABDOMEN PELVIS WITH CONTRAST, 05/08/2023, 11:02. [facility], CT, CT CHEST WITHOUT CONTRAST, 07/17/2023, 8:03. [facility], CR, XR CHEST 2 VIEWS, 05/07/2023, 10:01. FINDINGS: Surgical changes and devices: None. Lungs and pleura: Patient has had multiple imaging studies that have demonstrated masslike densities present in the apical portion of the right upper lobe. Current study demonstrates persistence of masslike densities with additional increased masslike density present in the right mid lung field. There is patchy right basilar atelectasis. Mediastinum: Mediastinal contours appear normal. Heart size is normal. Hiatal hernia. Bones and chest wall: No suspicious bony lesions. Overlying soft tissues appear unremarkable. IMPRESSION: Progressive process in the right lung. Additional masslike density seen in right mid lung field, of uncertain etiology. Hiatal hernia. Dictated by: Shubham Perry M.D. on 04/02/2024 at 9:30 Approved by: Shubham Perry M.D. on 04/02/2024 at 9:31 ECG Data Attestation: I personally reviewed and interpreted this ECG as follows: Interpretation: Flutter versus sinus rhythm he was persistent T-wave inversions noted in V3 similar to EKGs in 2021. Where she had a sinus rhythm MDM Narrative Medical decision making narrative: MDM CC: Shortness of breath Complicating co-morbidities: COPD/asthma chronic opiate on methadone chronic anemia Medical records reviewed: Previous visits 2021 Differential considered: COPD exacerbation viral illness pneumonia Exam documented above, pertinent findings include: Initially difficult to rales coarse breath sounds no peripheral edema abdomen soft Lab Test results independently reviewed as above. Pertinent findings: WBC 2, hemoglobin 8.5 hematocrit 28.3 previously 6.8/22.5 in 2021 CMP no significant electrolyte abnormality creatinine 0.75 Lactate 1.1 Bilirubin 0.3 AST 42 ALT 17 phos 75 Troponin negative BNP 238 7.42/49/73/31 Independently reviewed EKG as above Persistent T-wave inversion in V3 no acute ST changes it was a your little bit irregular hard to say if this is sinus rhythm there appears to be T-waves and P waves necessarily agree with Imaging studies independently reviewed: Chest x-ray shows masslike density in his right to mid lung CT chest does not show any PE does show prominent size of main pulmonary artery. Increased nodules and masslike consolidations may represent infectious process underlying neoplastic process can not be excluded. Multiple enlarged hilar lymph nodes as well Consultations: Dr. Cole accepts in patient Treatments: Narcan Zosyn Re-evaluations: Patient is hypoxic I did a trial of room air she goes down to 85%. She was requiring 1-2 L of oxygen. She definitely responded to Narcan but she shows no evidence of hypercapnia. She was chronically on methadone Discussion: Patient 53-year-old female presenting to day with cough and altered mental status from the methadone clinic. She was found to have pneumonia on her CT along with leukocytosis of 23. No evidence of severe sepsis lactate is 1.1. She had 1 blood pressure reading of 98/56 which is a map greater than 65 with a 2 minute repeat blood pressure of 105/59 so sepsis fluids were not given. During her stay in the ED she was becoming a little more lethargic at which 0.1 mg of Narcan was given which she quickly responded to. Did not go through withdrawal but definitely became more awake and alert ABG did not show any evidence of hypercapnia but does show PaO2 73 on 2 L Presentation and workup today consistent with pneumonia. She was leukocytosis evidence of pneumonia on CT no evidence of severe sepsis. She was on 1-2 L of oxygen. Discharge Plan Departure Patient Disposition: Admitted As Inpatient Clinical Impression: Pneumonia Admit Date/Time: 04/02/24 12:09 Admit Provider: Abhilash Santos
[2024-04-02 09:53] LABS: NT-proBNP (BNP-Adult 18+) 238 pg/mL (<125); Troponin I < 0.012 ng/mL (0.01-0.034)
--- NOTE | 2024-04-02 10:00 | PC.NURSE ---
PT difficult to rouse. MD notified. Pt sats 85% on RA. Medicated with 0.2 mg narcan. Pt wakes and is talking to Dr Rust. Pt is speaking in full sentences.
[2024-04-02] MEDS: NALOXONE 0.4 MG/ML VIAL 0.2 MG IV (10:05)
[2024-04-02 10:11] LABS: Blood Gas Collection Site Left Brachial; Delivery System Cannula; HCO3 ABG 31 mmol/L (23-27); Oxygen Saturation ABG 94 % (95-100); PCO2 ABG 49.1 mmHg (35-45); PO2 ABG 73 mmHg (80-100); TCO2 ABG 31 mmol/L (23-27); pH ABG 7.42 (7.35-7.45)
[2024-04-02] MEDS: PIPERACILLIN/TAZO 4.5 GM in SODIUM CHLORIDE 0.9% 100 ML IV (10:13)
--- NOTE | 2024-04-02 10:13 | DI.CT.S_ITS ---
PROCEDURE: CT ANGIO CHEST PE PROTOCOL INDICATIONS: mass vs pneumonia with hypoxia TECHNIQUE: After the administration of intravenous contrast, 2 mm thick sections acquired from the pulmonary apices to the posterior costophrenic angles. 3-dimensional maximum intensity projection (MIP) coronal and sagittal reformats were then acquired through the thorax. For radiation dose reduction, the following was used: automated exposure control, adjustment of mA and/or kV according to patient size. COMPARISON: Merged With [facility], CT, CT CHEST WITHOUT CONTRAST, 07/17/2023, 8:03. FINDINGS: Image quality: Diagnostic. Pulmonary arteries: Pulmonary arteries are prominent in size, and demonstrate no intraluminal filling defects to suggest central pulmonary embolism. Lower Neck: No enlarged lymph nodes. Thyroid: No thyroid nodules which require sonographic follow up, per consensus guidelines. Axillae: No enlarged lymph nodes. Chest Wall: Unremarkable. Bones: No aggressive appearing bony lesions. Degenerative disc disease throughout thoracic spine is seen. No acute fracture or dislocation. Lungs and Pleura: Compared to previous study, there is worsening of bilateral lung aeration with extensive centrilobular nodularity scattered in bilateral lung davis more prominent in right lower lobe and right middle lobe on the current study. Previously described 1.9 x 1.8 cm masslike opacity in posterior superior right upper lobe now measures up to 2.2 x 1.8 cm in size series 5, image 65. Previously described 2.5 x 1.6 cm masslike opacity in more central right apex now measures up to 2.1 x 2.2 cm in size series 5, image 47. Largest masslike opacity in right lower lobe now measures up to 2.5 x 2.1 cm in size series 5, image 227. Largest masslike opacity in right middle lobe measures up to 1.3 x 1.1 cm in size series 5, image 166. Heart: Heart size is mildly enlarged. No pericardial effusion. Thoracic Vessels: No aortic aneurysm. Mediastinum and [place]: Extensive mediastinal and hilar lymphadenopathy is seen measures up to 1.2 cm in size in precarinal space and 1.3 cm in size in right hilar region. Esophagus: No wall thickening. Large hiatal hernia. Upper Abdomen: Visualized upper abdomen solid organs and bowel loops appear normal. IMPRESSION: 1. No pulmonary embolus. Prominent size of main pulmonary artery which can be seen associated with pulmonary vascular hypertension. 2. Interval worsening of bilateral lung aeration with increased centrilobular pulmonary nodules and masslike consolidations as described in detail above. Finding may represent infectious/inflammatory process. Underlying neoplastic process cannot be excluded. No pleural effusion or pneumothorax. 3. Enlarged mediastinal and hilar lymph nodes which may be reactive in nature. 4. Large hiatal hernia. Dictated by: Daquan Freeman M.D. on 04/02/2024 at 10:55 Approved by: Daquan Freeman M.D. on 04/02/2024 at 11:03
[2024-04-02 10:24] LABS: Influenza A - CEPHEID Flu A NEGATIVE (NEGATIVE); Influenza B - CEPHEID Flu B NEGATIVE (NEGATIVE); Respiratory Syncytial Virus Negative (Negative)
[2024-04-02 10:25] LABS: COVID-19 CEPHEID 4-PLEX PCR Negative (Negative)
--- NOTE | 2024-04-02 12:56 | PM.HP.1 ---
History of Present Illness History of Present Illness Date Patient Seen: 04/02/24 Time Patient Seen: 12:56 Chief complaint: SOB Narrative: From ED doctor: Patient is a 53-year-old female history of COPD/asthma opiate use disorder on methadone daily history of anemia bipolar disorder presenting today with altered mental status. She was getting her methadone when they noticed she had a pretty significant coughing attack. She is found to be febrile here at 100.9, tachycardic mildly hypotensive meeting sepsis criteria. She initially awake and responsive however now becoming less responsive. EMS reports that she was hypoxic for them in the field in the mid to upper 80s she was put on 2 L nasal cannula now at 96%. She was not chronically on oxygen. She was given 1 mg of Narcan and actually quickly responds him and comes more awake. Reports that she has been sick a long time says that she still coughing. No other symptoms reported. Additional information: She states she has been sick for a long time but has had more of a cough and weakness for the last several days. She lives on the [facility] and takes the shuttle down for methadone clinic. She had her 197 mg methadone dose this morning. She was somewhat somnolent. She denies fevers, or chills. She does have chronic swelling of the left lower extremity which is not new. She does note some stress incontinence but denies any clear dysuria or hematuria. Her urine was noted to be quite cloudy. She denies any dyspnea, nausea, or chest pain. [facility] Medical History COPD (chronic obstructive pulmonary disease) Chronic insomnia Tobacco abuse disorder Bipolar disorder Opioid use disorder Social History household members: spouse and family Smoking Status: Current every day smoker alcohol intake: current Meds Home Medications and Allergies Home Medications Medication Instructions Recorded Confirmed Type albuterol sulfate 90 mcg/actuation 2 puff inhalation Q6H PRN 06/28/21 04/02/24 Rx aerosol inhaler shortness of breath or wheezing #8.5 grams methadone 5 mg/5 mL oral syringe 197 mg PO DAILY 04/02/24 04/02/24 History (FOR ORAL USE ONLY) omeprazole 20 mg capsule,delayed 20 mg PO DAILY 04/02/24 04/02/24 History release Allergies Allergy/AdvReac Type Severity Reaction Status Date / Time quetiapine [From Seroquel] Allergy Unknown Verified 03/25/24 09:10 trazodone Allergy Unknown Verified 03/25/24 09:10 Review of Systems Review of Systems Narrative: All else reviewed and otherwise unremarkable except as noted in the history and physical. Exam Vital Signs (past 8 hours): - 04/02/24 08:57 04/02/24 08:57 04/02/24 08:59 Temperature Pulse Rate 101 H Respiratory Rate Blood Pressure 98/56 L 105/59 L Pulse Oximetry 94 Oxygen Delivery Method Oxygen Flow Rate 04/02/24 08:59 04/02/24 09:00 04/02/24 09:04 Temperature 100.9 F H Pulse Rate 100 H 102 H 102 H Respiratory Rate 22 Blood Pressure 105/59 L Pulse Oximetry 94 95 94 Oxygen Delivery Method Nasal Cannula Oxygen Flow Rate 2 04/02/24 09:30 04/02/24 09:42 04/02/24 09:42 Temperature Pulse Rate 95 H 92 H Respiratory Rate 16 Blood Pressure 105/61 Pulse Oximetry 94 85 L Oxygen Delivery Method Nasal Cannula Room Air Oxygen Flow Rate 2 04/02/24 10:00 04/02/24 10:00 04/02/24 10:30 Temperature Pulse Rate 93 H 86 Respiratory Rate 20 17 Blood Pressure 104/58 L Pulse Oximetry 92 98 Oxygen Delivery Method Nasal Cannula Nasal Cannula Oxygen Flow Rate 2 2 04/02/24 11:00 04/02/24 11:19 04/02/24 11:19 Temperature Pulse Rate 84 85 Respiratory Rate 18 18 Blood Pressure 101/63 Pulse Oximetry 97 96 Oxygen Delivery Method Oxygen Flow Rate 04/02/24 11:30 04/02/24 11:30 04/02/24 12:00 Temperature Pulse Rate 85 84 Respiratory Rate 17 19 18 Blood Pressure 101/59 L Pulse Oximetry 96 96 96 Oxygen Delivery Method Nasal Cannula Oxygen Flow Rate 2 04/02/24 12:00 Temperature Pulse Rate Respiratory Rate Blood Pressure 101/63 Pulse Oximetry Oxygen Delivery Method Oxygen Flow Rate Oxygen Delivery Method Nasal Cannula Oxygen Flow Rate 2 Narrative Exam Narrative: NAD, alert and oriented, fluent speech, calm. She was somnolent and cachectic. Normocephalic skull, EOMI, anicteric sclera, symmetric pupils. Oropharynx unremarkable, no droop. Neck supple, midline trachea, no adenopathy. Lungs clear, normal rate and effort. Heart regular, no murmur gallop or rub. Abdomen is soft, non distended and non tender. Extremities: Left leg has mild edema and is somewhat boggy compared to the right. Skin is free of rash or lesions. Joints are not swollen or deformed. Judgment appears to be normal. Objective ECG Impression: Atrial flutter with 2:1 AV conduction Nonspecific T wave abnormality Imaging Chest x-ray: Radiologist's impression: Progressive process in the right lung. Additional masslike density seen in right mid lung field, of uncertain etiology. Hiatal hernia. CT scan - chest: Radiologist's impression: 1. No pulmonary embolus. Prominent size of main pulmonary artery which can be seen associated with pulmonary vascular hypertension. 2. Interval worsening of bilateral lung aeration with increased centrilobular pulmonary nodules and masslike consolidations as described in detail above. Finding may represent infectious/inflammatory process. Underlying neoplastic process cannot be excluded. No pleural effusion or pneumothorax. 3. Enlarged mediastinal and hilar lymph nodes which may be reactive in nature. 4. Large hiatal hernia. Labs 04/02/24 09:08 04/02/24 09:08 Labs: Laboratory Results - last 24 hr 04/02/24 04/02/24 09:08 10:08 WBC 23.0 H RBC 3.98 L Hgb 8.5 L Hct 28.3 L MCV 71.0 L MCH 21.3 L MCHC 30.0 RDW 21.8 H Plt Count 530 H Neut % (Auto) 90.7 H Lymph % (Auto) 3.4 L [place] % (Auto) 3.7 Eos % (Auto) 1.9 L Baso % (Auto) 0.3 Neut # (Auto) 32443 H Lymph # (Auto) 800 L [place] # (Auto) 800 Eos # (Auto) 400 Baso # (Auto) 100 RBC Morphology Not Reportable Poikilocytosis 1+ H Anisocytosis 2+ H PT 11.6 INR 1.0 APTT 31 ABG Sample Site Left brachial ABG pH 7.42 ABG pCO2 49.1 H ABG pO2 73 L ABG HCO3 31 H ABG Total CO2 31 H ABG O2 Saturation 94 L ABG Base Excess 6.0 H Abhilash Test N/a O2 Delivery Device Cannula FiO2 % 24 % Sodium 139 Potassium 4.2 Chloride 104 Carbon Dioxide 29 BUN 10 Creatinine 0.75 Estimated GFR > 60 BUN/Creatinine Ratio 13.3 Glucose 75 Lactate 1.1 Calcium 8.5 Total Bilirubin 0.3 AST 42 H ALT 17 Alkaline Phosphatase 75 Total Creatine Kinase 60 Troponin I < 0.012 NT-Pro-B Natriuret Pep 238 H Total Protein 7.3 Albumin 3.5 Globulin 3.8 Albumin/Globulin Ratio 0.9 L Lipase 32 SARS-CoV-2 (PCR) Negative Influenza A (RT-PCR) Flu a negative Influenza B (RT-PCR) Flu b negative RSV (PCR) Negative Assessment & Plan Assessment & Plan narrative: 1. Pneumonia, present on admission and active. 2. COPD not clearly exacerbation, present on admission and stable. 3. Continuous opiate dependence, present on admission and active. She takes methadone 197 mg daily. 4. Bipolar. Present on admission and stable. 5. Underweight with BMI of 18, present on admission and active. 6. Chronic left leg edema and bogginess, present on admission and stable. 7. Quit smoking several months ago, not active. PLAN: -continue IV antibiotics with Ceftriaxone, add doxycycline for atypical coverage (on Methadone 197 mg QD). -follow cultures. -monitor WBC. -resume usual methadone dosing tomorrow after dose confirmation. -monitor electrolytes and CBC daily. -bronchodilators scheduled and as needed. -UA & CS Full code. Anticipate 2 midnights of hospital care, supports inpatient status. Her chest CT is fairly abnormal with a question of infectious process versus other process. We will see if Pulmonary can review the CT scan in the next day or so. Time-Based Coding :: 35 min spent with patient and on the chart (including review of chart, obtaining history, exam, reviewing outside data, placing orders, documenting exam and treatment plan, and counseling patient) on 04/02. Quality VTE Deep Vein Thrombosis/Pulmonary Embolism Present on Admission: No MIPS - Admit I confirm the patient?s Advance Care Plan is present, Code status is documented, Surrogate decision maker is in patient?s record [If Yes, STOP here]: Yes MIPS - Meds 'Current medications' to include all prescriptions, [id number] products, herbals, cannabis/cannabidiol products, and vitamin/mineral/dietary (nutritional) supplements. I have utilized all available resources to obtain, update, or review the patient?s current medications. [If Yes, STOP here]: Yes
[2024-04-02] MEDS: SODIUM CHLORIDE 0.9% 1,000 ML 100 ML IV ×2 (13:41→22:08)
[2024-04-02] MEDS: HEPARIN 5,000 UNIT/ML VIAL 5000 UNIT SUBCUT ×2 (13:49→22:00)
[2024-04-02] MEDS: ACETAMINOPHEN 325 MG TABLET 650 MG PO ×2 (13:49→22:08)
[2024-04-02] MEDS: DOXYCYCLINE HYCLATE 100 MG TABLET PO ×2 (14:16→22:00)
[2024-04-02] MEDS: cefTRIAXone 1,000 MG in SODIUM CHLORIDE 0.9% 100 ML 200 MG IV (14:16)
[2024-04-02 14:27] LABS: Appearance Urine UA CLEAR; Bilirubin Urine UA NEGATIVE (NEGATIVE); Color Urine UA YELLOW; Glucose Urine UA NEGATIVE (Negative); Ketones Urine UA NEGATIVE (NEGATIVE); Leukocyte Esterase Urine UA NEGATIVE (NEGATIVE); Nitrite Urine UA NEGATIVE (Negative); Occult Blood Urine UA NEGATIVE (Negative); Protein Urine UA NEGATIVE (Negative); Specific Gravity Urine UA 1.015 (1.000-1.035); Urobilinogen Urine UA 0.2 E.U./dL (0.2)
[2024-04-02 14:45] LABS: Urine Volume 10mL (spun)
[2024-04-02 14:46] LABS: Amorphous Sediment Urine 1+; Bacteria Urine None Seen; Culture Indicated Urine Cult Not Indicated; RBC Urine None Seen (0-5/HPF); Squamous Epithelial Cell Urine 0-1 /HPF (0-5/HPF); WBC Urine 0-1/HPF (0-5/HPF)
--- NOTE | 2024-04-02 15:02 | PC.NURSE ---
Pt admitted to room 216 from ER. Pt is very drowsy but rouses to name. Given snacks to eat. Able to walk to bathroom with SBA on RA. O2 was 100% on RA upon returning to bed then decreased to 89% when she fell back asleep. Pt is oriented x 3. Received Tylenol for a headache. IVF/ABX infusing. SCD's on and running. Bed alarm on for safety. Pt denies falls. Pt oriented to room, call light, bed controls, and tv controls and agrees to call for assistance as needed.
[2024-04-03 02:00] VITALS: BP 97/63; PULSE 72; RESP 15; TEMP 36.7; O2SAT 98
[2024-04-03 05:08] LABS: Add Manual Diff / Slide Review NO; Basophils Absolute Auto 100 /uL (0-100); Basophils Percent Auto 0.6 % (0-2); Eosinophils Absolute Auto 900 /uL (0-450); Eosinophils Percent Auto 5.5 % (2-4); Hematocrit 26.2 % (36-46); Hemoglobin 7.7 g/dL (12.0-16.0); Lymphocytes Absolute Auto 1100 /uL (1100-4500); Mean Corpuscular HGB Conc 29.6 % (30-36); Mean Corpuscular Hemoglobin 21.3 PG (26-34); Mean Corpuscular Volume 71.9 fL (80-100); Monocytes Absolute Auto 700 /uL (0-900); Monocytes Percent Auto 4.2 % (3-14); Neutrophils Absolute Auto 13000 /uL (1500-7000); Neutrophils Percent Auto 82.7 % (50-75); Platelet Count 419 X10^3/uL (150-400); Red Blood Cell Count 3.64 X10^6/uL (4.0-5.2); Red Cell Distribution Width 21.6 % (11.6-14.8); White Blood Cell Count 15.8 X10^3/uL (4.5-11.0)
[2024-04-03 05:22] LABS: BUN Creatinine Ratio 14.5 (6-22); Blood Urea Nitrogen 9 mg/dL (7-17); Carbon Dioxide 27 mmol/L (22-32); Chloride 107 mmol/L (98-107); Estimated Glomerular Filt Rate > 60 mL/min (>60); Glucose 146 mg/dL (70-100); HEMOLYSIS < 15 (0-50); Potassium 3.8 mmol/L (3.4-5.1); Sodium 140 mmol/L (137-145)
[2024-04-03 06:11] LABS: Anisocytosis 2+; Hypochromasia 2+; Macrocytosis 1+; Microcytosis 1+; Platelet Estimate Increased on smear; Poikilocytosis 1+
[2024-04-03] MEDS: HEPARIN 5,000 UNIT/ML VIAL 5000 UNIT SUBCUT (09:02)
[2024-04-03] MEDS: buPROPion XL 150 MG TAB 300 MG PO (09:02)
[2024-04-03] MEDS: DOXYCYCLINE HYCLATE 100 MG TABLET PO (09:02)
[2024-04-03] MEDS: METHADONE INTENSOL 10 MG/ML ORAL.CONC 197 MG PO (09:03)
[2024-04-03 10:00] VITALS: BP 125/78; PULSE 68; RESP 20; TEMP 36.1; O2SAT 98
[2024-04-03] MEDS: ACETAMINOPHEN 325 MG TABLET 650 MG PO (11:10)
--- NOTE | 2024-04-03 11:56 | PM.DS.1 ---
History of Present Illness History of Present Illness Date Patient Seen: 04/03/24 Time Patient Seen: 11:56 Chief complaint: SOB Narrative: From ED doctor: Patient is a 53-year-old female history of COPD/asthma opiate use disorder on methadone daily history of anemia bipolar disorder presenting today with altered mental status. She was getting her methadone when they noticed she had a pretty significant coughing attack. She is found to be febrile here at 100.9, tachycardic mildly hypotensive meeting sepsis criteria. She initially awake and responsive however now becoming less responsive. EMS reports that she was hypoxic for them in the field in the mid to upper 80s she was put on 2 L nasal cannula now at 96%. She was not chronically on oxygen. She was given 1 mg of Narcan and actually quickly responds him and comes more awake. Reports that she has been sick a long time says that she still coughing. No other symptoms reported. Additional information: She states she has been sick for a long time but has had more of a cough and weakness for the last several days. She lives on the [facility] and takes the shuttle down for methadone clinic. She had her 197 mg methadone dose this morning. She was somewhat somnolent. She denies fevers, or chills. She does have chronic swelling of the left lower extremity which is not new. She does note some stress incontinence but denies any clear dysuria or hematuria. Her urine was noted to be quite cloudy. She denies any dyspnea, nausea, or chest pain. Discharge Providers Provider Date of admission: 04/02/24 12:09 Discharge Date: 04/03/24 Primary care physician: Josee Munoz DO Discharge provider: Marbin Gonzales DO Summary Hospital Course Discharge Diagnosis: 1. Bacterial Pneumonia, present on admission and active. 2. COPD without exacerbation, present on admission and stable. 3. Continuous opiate dependence, present on admission and active. 4. Bipolar. Present on admission and stable. 5. Underweight with BMI of 18, present on admission and active. 6. Chronic left leg edema and bogginess, present on admission and stable. 7. Quit smoking several months ago, not active. 8. Acute respiratory failure with hypoxia, resolved. Hospital Course: Is a 53-year-old female with a past medical history of COPD, bipolar disorder chronic opiate dependence on methadone who was admitted with shortness of breath and hypoxic respiratory failure. She was found to have a bacterial pneumonia and improved with antibiotic therapy. The day after admission her hypoxia resolved and she felt much improved and was discharged home, much more quickly than anticipated on admission. No other changes to her home medications are recommended at the time of discharge. She will complete Augmentin for another 5 days after discharge for full treatment of presumed bacterial pneumonia. I do recommend consideration of a reduction in her methadone dose as an outpatient, as her hypoxia did improve with a dose of narcan initially. Time Spent with Patient Time spent: Greater than 30 minutes Exam Vital Signs (past 8 hours): - 04/03/24 07:00 04/03/24 10:00 Temperature 97 F L Pulse Rate 68 Respiratory Rate 20 Blood Pressure 125/78 Pulse Oximetry 98 Oxygen Delivery Method Nasal Cannula Oxygen Flow Rate 0 Oxygen Delivery Method Nasal Cannula Oxygen Flow Rate 0 Narrative Exam Narrative: Gen: no acute distress Objective Labs 04/03/24 04:51 04/03/24 04:51 Labs: Laboratory Results - last 24 hr 04/02/24 04/03/24 13:55 04:51 WBC 15.8 H RBC 3.64 L Hgb 7.7 L Hct 26.2 L MCV 71.9 L MCH 21.3 L MCHC 29.6 L RDW 21.6 H Plt Count 419 H Neut % (Auto) 82.7 H Lymph % (Auto) 7.0 L [place] % (Auto) 4.2 Eos % (Auto) 5.5 H Baso % (Auto) 0.6 Neut # (Auto) 54993 H Lymph # (Auto) 1100 [place] # (Auto) 700 Eos # (Auto) 900 H Baso # (Auto) 100 Platelet Estimate Increased on smear RBC Morphology See below Hypochromasia 2+ H Poikilocytosis 1+ H Anisocytosis 2+ H Microcytosis 1+ H Macrocytosis 1+ H Sodium 140 Potassium 3.8 Chloride 107 Carbon Dioxide 27 BUN 9 Creatinine 0.62 Estimated GFR > 60 BUN/Creatinine Ratio 14.5 Glucose 146 H Calcium 8.0 L Urine Color Yellow Urine Appearance Clear Urine pH 8.0 Ur Specific [place] 1.015 Urine Protein Negative Urine Glucose (UA) Negative Urine Ketones Negative Urine Occult Blood Negative Urine Nitrate Negative Urine Bilirubin Negative Urine Urobilinogen 0.2 Ur Leukocyte Esterase Negative Urine RBC None seen Urine WBC 0-1/hpf Ur Squamous Epith Cells 0-1 /hpf Amorphous Sediment 1+ Urine Bacteria None seen Ur Culture Indicated? Cult not indicated Vol Urine Centrifuged 10ml (spun) PFSH Medical History COPD (chronic obstructive pulmonary disease) Chronic insomnia Tobacco abuse disorder Bipolar disorder Opioid use disorder Social History household members: spouse and family Smoking Status: Current every day smoker alcohol intake: current Discharge Plan Discharge Plan Patient Disposition: Home Provider Discharge Comment: You were admitted to the hospital with pneumonia. Improved with antibiotics. Continue antibiotic at home for 5 more days. No other medication changes are recommended, but consider trying to reduce methadone dose due to the level of fatigue you had coming into the hospital that improved with narcan. Discharge orders & Medications Prescriptions: New amoxicillin-pot clavulanate 875-125 mg tablet 1 tab PO BID 5 Days Qty: 10 0RF Continued albuterol sulfate 90 mcg/actuation HFA aerosol inhaler 2 puff inhalation Q6H PRN (Reason: shortness of breath or wheezing) Qty: 8.5 0RF omeprazole 20 mg capsule,delayed release(DR/EC) 20 mg PO DAILY methadone 5 mg/5 mL Syringe 197 mg PO DAILY Patient Comments: Confirmed by [facility] at [facility] bupropion HCl 300 mg Tablet Extended Release 24 Hr 300 mg PO BID Follow up/Referrals: Josee Munoz DO [Primary Care Provider] - Diet/Activity/Treatments Diet: Diet as Tolerated and Regular Activity: As tolerated, no restrictions. Visit Report/Discharge Packet Stand Alone Forms: Patient Portal/API, Stroke Signs & Symptoms Discharge Data Primary Care Provider: Josee Munoz Quality VTE Deep Vein Thrombosis/Pulmonary Embolism Present on Admission: No
[2024-04-03 12:00] VITALS: BP 123/68; PULSE 65; RESP 23; TEMP 36.1; O2SAT 97
--- NOTE | 2024-04-03 12:29 | CM.DANOTE ---
B DCP Assessment Note pt is a 53yo F admitted with SOB/pneumonia. PCP Josee Munoz Payer Medicaid and self pay LOG HANDLING EQUIPMENT OPERATOR reviewed EMR Per chart, pt lives in [place] with adult children/mother/additional family. standby assist with RN. per chart, [place] and goes to the methadone clinic. Per provider in morning rounds, likely dc today. Per RN, pt doing well no obvious CM needs. LOG HANDLING EQUIPMENT OPERATOR met with pt in room. sitting up eating lunch. pleasant and chatty. reports feeling better, denies any DCP/CM needs. has someone to take her home. per chart, dc order in. P: dc home with family support and OP f/u rec. no identified barriers to safe dc home at this time. will continue to follow as needed MARLEE Mortensen Discharge Planning/Care Management CM Discharge Assessment Start: 04/03/24 12:28 Freq: Status: Active Protocol: Document 04/03/24 12:28 (Rec: 04/03/24 12:29 [id number]) Discharge Planning Assessment Assigned Maintenance And Utilities Supervisor MARLEE Goddard DPOA/Assigned Designee Name aric calderón Contact Information [phone] Advance Directives? No History Provided By Patient,Medical Record Prior Living Arrangements House Household Members spouse,family Independent with ADL's Yes Is patient alert and oriented? Yes Barriers to Discharge No Discharge Plan Home Transportation Arrangement family in [place] Referrals Initiated None needed Whiteboard Updated in Patient Room with Yes name and ext. # of Maintenance And Utilities Supervisor Review Status In Process Please Provide Date Initial DC 04/03/24 Assessment Was Performed Next Review Type Continued Stay Review
== END 2024-04-03 14:53 | disposition home or self-care (01) | DRG 193 ==
LOC: ED 10:19 → AC 12:10
PROVIDERS: Admitting Provider Hospitalist; Emergency Provider Emergency Medicine; PCP Family Medicine; Referring Provider Emergency Medicine; Visit Provider Hospitalist
DX: J15.9 Unspecified bacterial pneumonia (principal); J96.01 Acute respiratory failure with hypoxia; F11.20 Opioid dependence, uncomplicated; Z68.1 Body mass index [BMI] 19.9 or less, adult; J44.0 Chronic obstructive pulmonary disease with (acute) lower respiratory infection; R63.6 Underweight; F31.9 Bipolar disorder, unspecified; R60.0 Localized edema; Z87.891 Personal history of nicotine dependence
CPT/HCPCS: 0241U; 36415; 36600; 71045; 71275; 80048; 80053; 81001; 82550; 82805; 83605; 83690; 83880; 84484; 85025; 85610; 85730; 87040; 93005; 96365; 96366; 96375; 99285; J0696; J1644; J2310; J2543; Q9967